=== PATIENT | female | born 1970 | race Caucasian/White ===

== ENCOUNTER 2019-02-11 17:17 | Emergency (ER) | payer MEDICAID ==
[~2019-02-11] VITALS: Ht 162.6 cm; Wt 68.9 kg
[2019-02-11 17:33] VITALS: Ht 162.6 cm; Wt 68.9 kg
[2019-02-11] MEDS ORDERED: ASPIRIN 325 MG TAB PO STA (18:12)
[2019-02-11] MEDS ORDERED: KETOROLAC 30 MG INJ IV STA (19:14)
[2019-02-11] MEDS ORDERED: KETOROLAC 60 MG INJ IM STA (19:27)
[2019-02-11] MEDS ORDERED: MECLIZINE 12.5 MG TAB PO ONE (19:30)
--- NOTE | 2019-02-11 19:31 | ERD ---
ER Documentation Chief Complaint Chief Complaint CP radiating to L arm (worse on inspiration), dizziness, weakness X 3 days HPI This is a 49-year-old female with no past medical history that presents to the emergency department complaining of a right-sided chest pain. The patient indicates that the pain was worse with inspiration and has been present for the past 3 weeks. Contrary to the triage note the patient states that it does not radiate to her left arm but rather to her right arm. She denies any trauma to her chest wall. She indicates she has felt dizzy and lightheaded where she feels as though the room is spinning around her. She denies any syncope or near syncope episode. She indicates that this has been persistent. The patient has exacerbating factors when she moves her right upper extremity. She denies any associated symptoms of diaphoresis or nausea. She did not take any analgesic medication prior to arrival. She has no shortness of breath at rest or exertion and denies any recent travel or prolonged immobilization. She denies a headache. She has no numbness. ROS All systems reviewed and are negative except as per history of present illness. Allergies Allergies: Coded Allergies: Penicillins (Verified Allergy, Unknown, 02/11/19) PMhx/Soc History of Surgery: No Anesthesia Reaction: No Hx Neurological Disorder: No Hx Respiratory Disorders: No Hx Cardiac Disorders: No Hx Psychiatric Problems: No Hx Miscellaneous Medical Probl: Yes (hyperthyroidism) Hx Alcohol Use: No Hx Substance Use: No Hx Tobacco Use: No Smoking Status: Never smoker Physical Exam Vitals Vital Signs Date Temp Pulse Resp B/P (MAP) Pulse Ox O2 O2 Flow FiO2 Time Delivery Rate 02/11/19 98.6 60 11 145/79 100 Nasal 18:15 (101) Cannula 02/11/19 97.7 76 18 146/62 99 17:33 (90) Physical Exam Constitutional:Well-developed. Well-nourished. HEENT:Normocephalic. Atraumatic.Pupils were equal round reactive to light. Moist mucous membranes.No tonsillar exudates. Neck: No nuchal rigidity. No lymphadenopathy. No posterior cervical spine tenderness or step-offs. Respiratory: Not using accessory muscles of respiration.Lungs were clear to auscultation bilaterally. No rhonchi. No rales. No wheezing. Cardiovascular: Regular rate regular rhythm.No murmurs. No rubs were appreciated.S1, S2 normal. Distal pulses are palpable 2+ bilaterally. Reducible right chest wall tenderness with no crepitus no ecchymosis no flail chest and this was exacerbated with horizontal abduction of the right upper extremity. Compartments of the bilateral upper extremities were soft GI: Abdomen was soft. Nontender. Non Distended. No pulsatile abdominal masses or bruits. No rebound. No guarding. Bowel sounds were present and normal. Muscle skeletal: Full range of motion of both the upper and lower extremities bilaterally.Normal muscle tone.No assymetrical calf tenderness or swelling. Skin: No petechia, no purpura. No lesions on the palms or the soles of the feet. No maculopapular rash. NEURO: Patient was alert, awake, orientated x3.No facial droop. Gait observed and normal with no ataxia.Speech had regular rate and rhythm. No focal neurological deficits. Result Diagram: 02/11/19183002/11/191830 Results 24 hrs Laboratory Tests Test 02/11/19 18:31 02/11/19 18:52 White Blood Count 9.5 10^3/ul Red Blood Count 3.74 10^6/ul Hemoglobin 11.6 g/dl Hematocrit 34.8 % Mean Corpuscular Volume 93.0 fl Mean Corpuscular Hemoglobin 31.0 pg Mean Corpuscular Hemoglobin Concent 33.3 g/dl Red Cell Distribution Width 13.2 % Platelet Count 269 10^3/UL Mean Platelet Volume 9.6 fl Immature Granulocytes % 0.400 % Neutrophils % 74.3 % Lymphocytes % 18.1 % Monocytes % 6.4 % Eosinophils % 0.6 % Basophils % 0.2 % Nucleated Red Blood Cells % 0.0 /100WBC Immature Granulocytes # 0.040 10^3/ul Neutrophils # 7.0 10^3/ul Lymphocytes # 1.7 10^3/ul Monocytes # 0.6 10^3/ul Eosinophils # 0.1 10^3/ul Basophils # 0.0 10^3/ul Nucleated Red Blood Cells # 0.0 10^3/ul Prothrombin Time 11.8 Sec Prothrombin Time Ratio 0.9 INR International Normalized Ratio 0.86 Activated Partial Thromboplast Time 24.5 Sec Urine Color STRAW Urine Clarity CLEAR Urine pH 7.0 Urine Specific [place] 1.005 Urine Ketones NEGATIVE mg/dL Urine Nitrite NEGATIVE mg/dL Urine Bilirubin NEGATIVE mg/dL Urine Urobilinogen NEGATIVE mg/dL Urine Leukocyte Esterase NEGATIVE Kiera/ul Urine Microscopic RBC 7 /HPF Urine Microscopic WBC 2 /HPF Urine Squamous Epithelial Cells FEW /HPF Urine Bacteria FEW /HPF Urine Mucus FEW /HPF Urine Hemoglobin 1+ mg/dL Urine Glucose NEGATIVE mg/dL Urine Total Protein NEGATIVE mg/dl Sodium Level 138 mmol/L Potassium Level 3.9 mmol/L Chloride Level 100 mmol/L Carbon Dioxide Level 30 mmol/L Anion Gap 8 Blood Urea Nitrogen 12 mg/dl Creatinine 0.57 mg/dl Est Glomerular Filtrat Rate mL/min > 60 mL/min Glucose Level 86 mg/dl Calcium Level 9.5 mg/dl Total Bilirubin 0.3 mg/dl Direct Bilirubin 0.00 mg/dl Indirect Bilirubin 0.3 mg/dl Aspartate Amino Transf (AST/SGOT) 22 IU/L Alanine Aminotransferase (ALT/SGPT) 19 IU/L Alkaline Phosphatase 112 IU/L Creatine Kinase 35 IU/L Creatine Kinase Index 0.6 Creatinine Kinase MB (Mass) < 0.22 ng/ml Troponin I < 0.012 ng/ml B-Type Natriuretic Peptide 114 PG/ML Total Protein 7.5 g/dl Albumin 4.3 g/dl Globulin 3.20 g/dl Albumin/Globulin Ratio 1.34 POC Beta HCG, Qualitative NEGATIVE Current Medications Medications Dose Sig/Michael Start Time Status Last (Trade) Ordered Route PRN Stop Time Admin Dose Reason Admin Aspirin 325 mg ONCE STAT 02/11/19 DC 02/11/19 (Aspirin) PO 18:12 02/11/19 18:59 18:14 Ketorolac 30 mg ONCE STAT 02/11/19 DC 02/11/19 Tromethamine IV 19:14 02/11/19 19:18 (Toradol) 19:26 Procedures/MDM The patient presented to the emergency department complaining of chest pain. My clinical evaluation and workup was to distinguish minor causes of chest pain from acute life threatening cardiopulmonary causes such as myocardial infarction, pulmonary embolism, aortic dissection, esophageal rupture, cardiac tamponade, The patient was placed on a monitoring coordinator, continuous pulse oximetry. 12 Lead EKG tracing ordered and reviewed by myself showed: Normal sinus rhythm of 65 bpm and no arrhythmia. VT interval normal. QRS duration normal. No ST segment elevation No ST segment depression. No changes consistent with acute ischemia. I obtained a 1 view chest radiograph which showed no infiltrates no pneumothorax or pleural effusions. The patient was given IM Toradol. She was also given Antivert as she was complaining of vertiginous type symptoms. However there is no focal neurological deficits to suggest a strokelike symptom. The patient had no risk factors for pulmonary embolism. The patients chest pain was reproduced by palpation and horizontal flexion of the arms. It was my clinical impression that the pain was a result of inflammation of the skin and subcutaneous structures of the chest wall versus myocardial ischemia. I felt the patient had low-risk chest pain and could therefore be safely discharged with close follow-up. Departure Diagnosis: Primary Impression: Pleuritic chest pain Condition: FABRIZIO De Los Santos MD Feb 11, 2019 19:31
[2019-02-11] MEDS ORDERED: IBUP-1542 PO (19:34)
[2019-02-11] MEDS ORDERED: LEVO75TA5 PO (20:09)
[2019-02-11 20:11] VITALS: BP 130/80; PULSE 80; RESP 20
[2019-02-11] MEDS ORDERED: IBUP200C11 PO (20:11)
== END 2019-02-11 20:11 | disposition home or self-care (01) ==
LOC: E/R 17:17
DX: R07.89 Other chest pain (principal)
CPT/HCPCS: 71045; 80053; 81001; 81025; 82550; 82553; 83880; 84484; 85025; 85610; 85730; 96372; 96374; J1885; Z7502; Z7610

== ENCOUNTER 2019-04-30 11:42 | Emergency (ER) | payer MEDICAID ==
[~2019-04-30] VITALS: Ht 162.6 cm; Wt 68.0 kg
[~2019-04-30 11:42] MED LIST: IBUP-1542 PO; IBUP200C11 PO; LEVO75TA5 PO
[2019-04-30 11:50] VITALS: BP 132/74; PULSE 87; RESP 16; Ht 162.6 cm; Wt 68.0 kg
[2019-04-30] MEDS ORDERED: ONDANSETRON 4 MG INJ IV STA (12:13)
[2019-04-30] MEDS ORDERED: KETOROLAC 15 MG INJ IV STA (12:13)
[2019-04-30] MEDS ORDERED: LACTATED RINGER'S 1,000 ML IV STA (12:13)
[2019-04-30] MEDS ORDERED: CEPH-443 PO (14:37)
[2019-04-30] MEDS ORDERED: IBUP-1542 PO (14:37)
[2019-04-30] MEDS ORDERED: CEPHALEXIN 500 MG CAP PO ONE (14:44)
--- NOTE | 2019-04-30 18:49 | ERD ---
ER Documentation Chief Complaint Chief Complaint RT FLANK PAIN RADIATING TO GROIN, REFERRED BY PCP TO R/O PYELONEPHRITIS HPI This is a 49-year-old woman complaining of dysuria and right flank pain radiating to the suprapubic region x2 days associated with some nausea but no vomiting or diarrhea. Patient was referred here by her medical clinic to rule out pyelonephritis although patient denies fevers or chills, she has had no vag inal discharge or blood in urine, no chest pain or shortness of breath, no diaphoresis, no loss of consciousness. ROS All systems reviewed and are negative except as per history of present illness. Medications Home Meds Active Scripts Ibuprofen* (Motrin*) 600 Mg Tab, 600 MG PO Q8 PRN for PAIN AND/OR INFLAMMATION, #30 TAB Prov:KEVIN FULLER MD 04/30/19 Cephalexin* (Keflex*) 500 Mg Capsule, 500 MG PO QID for 5 Days, CAP Prov:KEVIN FULLER MD 04/30/19 Reported Medications Levothyroxine Sodium* (Levothyroxine Sodium*) 75 Mcg Tablet, 75 MCG PO BEFORE BREAKFAST, #30 TAB 02/11/19 Discontinued Reported Medications Ibuprofen* (Advil*) 200 Mg Capsule, 200 MG PO Q6H PRN for PAIN, CAP 02/11/19 Discontinued Scripts Ibuprofen* (Motrin*) 600 Mg Tab, 600 MG PO Q6H PRN for PAIN AND OR ELEVATED TEMP, #30 TAB Prov:FABRIZIO REYNOLDS MD 02/11/19 Allergies Allergies: Coded Allergies: Penicillins (Verified Allergy, Unknown, 04/30/19) PMhx/Soc Hypothyroidism History of Surgery: No Anesthesia Reaction: No Hx Neurological Disorder: No Hx Respiratory Disorders: No Hx Cardiac Disorders: No Hx Psychiatric Problems: No Hx Miscellaneous Medical Probl: Yes (hyperthyroidism) Hx Alcohol Use: No Hx Substance Use: No Hx Tobacco Use: No Smoking Status: Never smoker Physical Exam Vitals Vital Signs Date Temp Pulse Resp B/P (MAP) Pulse Ox O2 O2 Flow FiO2 Time Delivery Rate 04/30/19 98.1 87 16 132/74 98 11:50 (93) Physical Exam GENERAL: Well-developed, well-nourished, well-hydrated, in no apparent distress, looks nontoxic in appearance HEENT: Moist mucous membranes, pink conjunctiva, no cervical spine tenderness or step-off deformities, no goiter, no jaundice or icterus, extraocular movements i ntact without pain. No submandibular induration, and no pharyngeal erythema NEURO: Alert and oriented 3, cranial nerves II through XII intact bilaterally, pupils equal round reactive to light, no focal deficits or facial asymmetry, sensation intact distally Strength 5/5 in upper and lower extremities bilaterally CARDIAC: Regular rate and rhythm, no murmurs rubs or gallops LUNGS: Clear bilaterally no wheezing crackles or stridor ABDOMEN: Soft nontender, no guarding, no rigidity, no rebound, no psoas sign no obturator sign. Normoactive bowel sounds SKIN: Warm and dry to touch, no abrasions, contusions, or hematomas, no lacerations, no ecchymosis, no target lesions, and without ulcers EXTREMITIES: No clubbing cyanosis or edema, calves are bilaterally symmetrical, no Homans sign, no popliteal cord sign. Distal pulses equal and bilateral PSYCH: Normal affect without agitation or irritability Result Diagram: 04/30/19 1225 04/30/19 1225 Results 24 hrs Laboratory Tests Test 04/30/19 12:23 04/30/19 12:25 04/30/19 12:30 Serum HCG, Qualitative NEGATIVE White Blood Count 8.5 10^3/ul Red Blood Count 3.85 10^6/ul Hemoglobin 11.8 g/dl Hematocrit 35.2 % Mean Corpuscular Volume 91.4 fl Mean Corpuscular Hemoglobin 30.6 pg Mean Corpuscular 33.5 g/dl Hemoglobin Concent Red Cell Distribution Width 13.2 % Platelet Count 261 10^3/UL Mean Platelet Volume 9.4 fl Immature Granulocytes % 0.400 % Neutrophils % 77.6 % Lymphocytes % 15.3 % Monocytes % 5.4 % Eosinophils % 1.1 % Basophils % 0.2 % Nucleated Red Blood Cells % 0.0 /100WBC Immature Granulocytes # 0.030 10^3/ul Neutrophils # 6.6 10^3/ul Lymphocytes # 1.3 10^3/ul Monocytes # 0.5 10^3/ul Eosinophils # 0.1 10^3/ul Basophils # 0.0 10^3/ul Nucleated Red Blood Cells # 0.0 10^3/ul Sodium Level 141 mmol/L Potassium Level 3.7 mmol/L Chloride Level 106 mmol/L Carbon Dioxide Level 30 mmol/L Anion Gap 5 Blood Urea Nitrogen 13 mg/dl Creatinine 0.61 mg/dl Est Glomerular Filtrat > 60 mL/min Rate mL/min Glucose Level 99 mg/dl Calcium Level 8.6 mg/dl Total Bilirubin 0.5 mg/dl Direct Bilirubin 0.00 mg/dl Indirect Bilirubin 0.5 mg/dl Aspartate Amino 37 IU/L Transf (AST/SGOT) Alanine 45 IU/L Aminotransferase (ALT/SGPT) Alkaline Phosphatase 92 IU/L Total Protein 6.7 g/dl Albumin 3.8 g/dl Globulin 2.90 g/dl Albumin/Globulin Ratio 1.31 Lipase 100 U/L Urine Color YELLOW Urine Clarity SLIGHTLY CLOUDY Urine pH 6.0 Urine Specific [place] 1.025 Urine Ketones NEGATIVE mg/dL Urine Nitrite NEGATIVE mg/dL Urine Bilirubin NEGATIVE mg/dL Urine Urobilinogen 1+ mg/dL Urine Leukocyte Esterase TRACE Kiera/ul Urine Microscopic RBC 29 /HPF Urine Microscopic WBC 6 /HPF Urine Squamous Epithelial Cells FEW /HPF Urine Bacteria FEW /HPF Urine Mucus FEW /HPF Urine Hemoglobin 2+ mg/dL Urine Glucose NEGATIVE mg/dL Urine Total Protein NEGATIVE mg/dl Current Medications Medications Dose Sig/Michael Start Time Status Last (Trade) Ordered Route PRN Stop Time Admin Dose Reason Admin Lactated 1,000 ml @ Q1H STAT 04/30/19 DC 04/30/19 Ringer's 1,000 mls/hr IV 12:13 13:13 04/30/19 13:12 Ondansetron 4 mg ONCE STAT 04/30/19 DC 04/30/19 HCl (Zofran IV 12:13 13:13 Inj) 04/30/19 12:15 Ketorolac 15 mg ONCE STAT 04/30/19 DC 04/30/19 Tromethamine IV 12:13 13:58 (Toradol) 04/30/19 12:15 Cephalexin 500 mg ONCE ONCE 04/30/19 DC 04/30/19 (Keflex) PO 14:44 14:49 04/30/19 14:45 Procedures/MDM IV line was established patient was placed on equipment monitor phototypesetting rhythm strip revealed a sinus rhythm at about 80 bpm with upright P and T waves. Patient was afebrile I administered 1 L LR IV, Toradol 15 mg IV, Zofran 4 mg IV The scan of the abdomen pelvis was performed,IMPRESSION: 1. No evidence of acute abdominopelvic inflammatory process, mass or lymphadenopathy. 2. Post cholecystectomy. 3. Small fat hernia. 4. Mild diverticulosis. 5. Uterine fibroid. Urinalysis was positive for infection I treated her here with cephalexin 500 mg p.o. I do not suspect pyelonephritis and she has no signs or symptoms of pyelonephritis CBC and electrolytes were unremarkable, liver function tests were normal Differential diagnoses considered, included but not limited to acute coronary syndrome, pulmonary embolism, aortic dissection, abdominal aortic aneurysm, sepsis, stroke, meningitis, encephalitis, pneumonia, appendicitis, cholecystitis, bowel obstruction, pyelonephritis, nephrolithiasis, cystitis, as well as metabolic, hematologic, and electrolyte abnormalities. As well as abscess, cellulitis, fractures, and dislocations. Patient feels much better at this time, and vital signs are normal, symptoms have improved. I did give strict instructions to return to the ED if symptoms continue or worsen, patient will otherwise follow-up with primary care physician. Patient understood instructions and agreed to plan. Disclaimer: Inadvertent spelling and grammatical errors are likely due to EHR/di ctation software use and do not reflect on the overall quality of patient care. Also, please note that the electronic time recorded on this note does not necessarily reflect the actual time of the patient encounter. Departure Diagnosis: Primary Impression: Flank pain Additional Impression: Acute UTI Condition: Good Patient Instructions: Flank Pain, Uncertain Cause, Bladder Infection, Female (Adult) Referrals: [facility] (PCP) KEVIN FULLER MD Apr 30, 2019 18:49
== END 2019-04-30 15:16 | disposition home or self-care (01) ==
LOC: E/R 11:42
DX: N39.0 Urinary tract infection, site not specified (principal)
CPT/HCPCS: 36415; 74176; 80053; 81001; 83690; 84703; 85025; 96374; 96375; J1885; J2405; J7120; Z7502; Z7610